=== PATIENT | female | born 1990 | race African-American/Black ===

== ENCOUNTER 2017-12-26 19:54 | Emergency (ER) | payer OTHER ==
[2017-12-26 20:47] LABS: BASO % 0.4 % (0.0-1.0); EOS # 0.1 10^3/uL (0.0-0.50); HEMATOCRIT 36.8 % (36.0-47.0); IMMATURE GRANULOCYTE % 0.4 % (0-3.0); LYMPH # 2.2 10^3/uL (1.5-6.5); LYMPH % 22.6 % (24.0-44.0); MEAN CORPUSCULAR HEMOGLOBIN 28.6 pg (27.0-33.0); MEAN CORPUSCULAR HGB CONC 32.6 g/dl (32.0-36.5); MEAN CORPUSCULAR VOLUME 87.6 fl (80.0-96.0); MONO # 0.6 10^3/uL (0.0-0.8); MONO % 6.3 % (0.0-5.0); NEUTROPHILS # 6.8 10^3/uL (1.8-7.7); NEUTROPHILS % 69.3 % (36.0-66.0); PLATELET COUNT, AUTOMATED 231 10^3/uL (150-450); WHITE BLOOD COUNT 9.9 10^3/uL (4.0-10.0)
[2017-12-26 20:54] LABS: KETONE, URINE AUTO RFX NEGATIVE (NEGATIVE); MUCUS, URINE RFX SMALL (NEGATIVE); NITRITE, URINE AUTO RFX NEGATIVE (NEGATIVE); RBC, URINE AUTO RFX 74 /HPF (0-3); SPECIFIC GRAVITY UR AUTO RFX 1.018 (1.002-1.035); SQUAM EPITHELIAL CELL UR AURFX 3 /HPF (0-6)
[2017-12-26 20:56] LABS: CONTROL LINE HCG INT CTR LINE PRESENT; HCG, SERUM QUALITATIVE NEGATIVE (NEGATIVE)
[2017-12-26 21:03] LABS: ALBUMIN 3.2 GM/DL (3.2-5.2); ALKALINE PHOSPHATASE 61 U/L (45-117); ALT/SGPT 16 U/L (12-78); ANION GAP 7 MEQ/L (8-16); AST/SGOT 12 U/L (7-37); BILIRUBIN,DIRECT 0.1 MG/DL (0.0-0.2); BILIRUBIN,TOTAL 0.4 MG/DL (0.2-1.0); BLOOD UREA NITROGEN 14 MG/DL (7-18); CALCIUM LEVEL 8.2 MG/DL (8.5-10.1); CARBON DIOXIDE LEVEL 23 MEQ/L (21-32); CHLORIDE LEVEL 110 MEQ/L (98-107); GLOMERULAR FILTRATION RATE > 60.0 (>60); GLUCOSE, FASTING 91 MG/DL (70-100); LIPASE 129 U/L (73-393); POTASSIUM SERUM 3.9 MEQ/L (3.5-5.1); SODIUM LEVEL 140 MEQ/L (136-145); TOTAL PROTEIN 7.8 GM/DL (6.4-8.2)
[2017-12-26 21:10] LABS: LEUKOCYTE ESTERASE UR AUTO RFX 1+ (NEGATIVE); WBC, URINE AUTO RFX 73 /HPF (0-3)
[2017-12-26] MEDS: MORPHINE 4 MG/ML 1ML VIAL/SYRINGE (J2270) IV (21:14)
[2017-12-26] MEDS: NS 1,000 ML IV (21:15)
[2017-12-26] MEDS ORDERED: ONDANSETRON 4MG/2ML VIAL (J2405) As Ordered (22:44)
[2017-12-26] MEDS: CIPROFLOXACIN 400 MG in APPROPRIATE DILUENT 1 EA IV (22:45)
[2017-12-26] MEDS: ONDANSETRON 4MG/2ML VIAL (J2405) IV (22:45)
== END 2017-12-27 00:03 | disposition home or self-care (01) ==
LOC: M ED 12-27 00:03
DX: N10 Acute pyelonephritis (principal); Z88.6 Allergy status to analgesic agent; Z79.899 Other long term (current) drug therapy
CPT/HCPCS: J2270

== ENCOUNTER 2018-03-18 18:25 | Emergency (ER) | payer OTHER ==
[2018-03-18] MEDS ORDERED: PROPOFOL 200 MG/20 ML VIAL As Ordered (19:11)
[2018-03-18] MEDS: PROPOFOL 200 MG/20 ML VIAL IV (19:25)
== END 2018-03-18 20:04 | disposition home or self-care (01) ==
LOC: M ED 18:25
DX: S43.002A Unspecified subluxation of left shoulder joint, initial encounter (principal); X50.9XXA Other and unspecified overexertion or strenuous movements or postures, initial encounter; Y92.018 Other place in single-family (private) house as the place of occurrence of the external cause; Z88.8 Allergy status to other drugs, medicaments and biological substances
CPT/HCPCS: 73020

== ENCOUNTER → 2018-06-30 | Outpatient (CLI) | payer OTHER ==
[~2018-06-30] MED LIST: CAPS0.022 TOP; CIPR-249 PO; CONRAY-43 43% 50ML VIAL (Q9960) As Ordered ONE; LIDO4CRE2 EX; PROHANCE 279.3MG/ML 5ML VIAL (A9576) As Ordered ONE; XULA1DIS TOP; ZOFR4TAB14 PO
--- NOTE | 2018-06-30 09:28 | REP ---
MRI ARTHROGRAM LEFT SHOULDER: TECHNIQUE: Axial T2 fat sat, coronal oblique T1, T2 fat sat, post arthrogram axial T1 fat sat, proton density, coronal oblique T1 fat sat, T2 sat, sagittal oblique T2 fat sat, ABER T1 fat sat. Mild ill-defined high signal was seen involving the supraspinatus tendon compatible with mild tendinopathy. No rotator cuff tendon tear is seen. There are not significant hypertrophic changes at the acromioclavicular joint. The acromion is type 2. The biceps tendon is within the bicipital groove. There appears to be a small Hill-Sachs deformity of the humeral head with mild underlying bone marrow edema and also a mild to moderate degree of subchondral cystic change at that location. Biceps labral complex is intact. There is no evidence of a SLAP tear or other evidence of a labral tear. There is no paralabral cyst. No other abnormal bone marrow signal is seen. There is a normal amount of joint fluid. IMPRESSION: Mild supraspinatus tendinopathy. No rotator cuff tear or labral tear. Small Hill-Sachs deformity of the humeral head with mild underlying marrow edema in the humeral head as well as subchondral cystic change superolaterally. Electronically Signed by Venu Spain MD 06/30/2018 11:43 A
--- NOTE | 2018-06-30 16:24 | REP ---
Procedure: Left shoulder arthrogram The procedure was performed under the direct supervision of Dr. Spain. History: Left shoulder pain The benefits and risks including but not limited to pain, infection, bleeding and anaphylaxis were explained to the patient and informed consent was obtained. Technique: The left glenohumeral joint space was localized using fluoroscopic guidance. The skin was prepped and draped in a sterile fashion. 1% lidocaine was used as a local anesthetic. Using fluoroscopic guidance a 22 gauge spinal needle was inserted and advanced into the joint. 0.5 ml of Conray 43 was injected to verify placement. 11 ml of a solution containing 20 ml of sterile saline and 0.15 ml of ProHance was injected into the joint. The needle was removed and the patient was taken to MRI for postprocedural imaging. The patient tolerated the procedure well and there were no immediate complications. Less than 6 seconds of fluoro time was utilized for this procedure. Reviewed by JOSÉ MIGUEL Felder 06/30/2018 03:50 P Electronically Signed by Venu Spain MD 06/30/2018 04:15 P
== END ==
LOC: M RADPRO 06:33
PROVIDERS: ATTEND Physician Assistant
DX: M75.22 Bicipital tendinitis, left shoulder (principal); M25.512 Pain in left shoulder
CPT/HCPCS: 23350; 73223; 77002; A9576; Q9960

== ENCOUNTER 2018-12-20 14:20 | Emergency (ER) | payer OTHER ==
[~2018-12-20] VITALS: Ht 170.2 cm; Wt 81.8 kg
[~2018-12-20 14:20] MED LIST changes: -CONRAY-43 43% 50ML VIAL (Q9960) As Ordered ONE; -PROHANCE 279.3MG/ML 5ML VIAL (A9576) As Ordered ONE
[2018-12-20] MEDS ORDERED: LUNE2TAB23 PO (14:25)
[2018-12-20] MEDS ORDERED: ZOLO100T PO (14:25)
[2018-12-20] MEDS ORDERED: atarax (14:25)
[2018-12-20] MEDS ORDERED: NS 1,000 ML IV ONE (15:30)
[2018-12-20 16:09] LABS: BASO % 0.4 % (0.0-1.0); EOS # 0.1 10^3/uL (0.0-0.5); EOS % 1.5 % (0.0-3.0); HEMATOCRIT 39.5 % (36.0-47.0); HEMOGLOBIN 12.6 g/dl (12.0-15.5); LYMPH # 2.5 10^3/uL (1.5-5.0); LYMPH % 34.3 % (24.0-44.0); MEAN CORPUSCULAR HEMOGLOBIN 28.4 pg (27.0-33.0); MEAN CORPUSCULAR HGB CONC 31.9 g/dl (32.0-36.5); MONO # 0.4 10^3/uL (0.0-0.8); MONO % 5.5 % (0.0-5.0); NEUTROPHILS # 4.2 10^3/uL (1.5-8.5); PLATELET COUNT, AUTOMATED 251 10^3/uL (150-450); RED BLOOD COUNT 4.44 10^6/uL (4.00-5.40); WHITE BLOOD COUNT 7.2 10^3/uL (4.0-10.0)
[2018-12-20] MEDS ORDERED: ONDANSETRON 4MG/2ML VIAL (J2405) IV ONE (16:30)
[2018-12-20] MEDS ORDERED: ACETAMINOPHEN 500 MG TAB PO ONE (16:30)
[2018-12-20 16:48] LABS: ALBUMIN 3.5 GM/DL (3.2-5.2); ALT/SGPT 16 U/L (12-78); BILIRUBIN,DIRECT 0.1 MG/DL (0.0-0.2); BILIRUBIN,TOTAL 0.3 MG/DL (0.2-1.0); BLOOD UREA NITROGEN 9 MG/DL (7-18); CARBON DIOXIDE LEVEL 27 MEQ/L (21-32); CHLORIDE LEVEL 104 MEQ/L (98-107); CREATININE FOR GFR 0.75 MG/DL (0.55-1.30); GLOMERULAR FILTRATION RATE > 60.0 (>60); GLUCOSE, FASTING 80 MG/DL (70-100); LIPASE 154 U/L (73-393); POTASSIUM SERUM 3.9 MEQ/L (3.5-5.1); SODIUM LEVEL 139 MEQ/L (136-145); TOTAL PROTEIN 7.6 GM/DL (6.4-8.2)
[2018-12-20 19:22] VITALS: BP 100/56
== END 2018-12-20 19:54 | disposition home or self-care (01) ==
LOC: M ED 14:20
DX: G43.909 Migraine, unspecified, not intractable, without status migrainosus (principal); D55.0 Anemia due to glucose-6-phosphate dehydrogenase [G6PD] deficiency; Z79.899 Other long term (current) drug therapy; Z88.6 Allergy status to analgesic agent
CPT/HCPCS: 80048; 80076; 83690; 84702; 85025; 96374; 99284; J2405